=== PATIENT | male | born 1975 | race Caucasian/White ===

== ENCOUNTER 2016-08-29 10:15 | Emergency (ER) | payer OTHER ==
[2016-08-29 10:20] VITALS: BP 129/91; PULSE 99; TEMP 97.8; BMI 27.1
[2016-08-29] MEDS ORDERED: ONDANSETRON *ODT* 4 MG TABLET ONE (10:46)
[2016-08-29] MEDS ORDERED: KETOROLAC TROMETHAMINE 60 MG/2 ML VIAL ONE (11:35)
[2016-08-29] MEDS ORDERED: KETOROLAC TROMETHAMINE 60 MG/2 ML VIAL IM ONE (11:36)
[2016-08-29 13:34] LABS: BASOPHIL 0.4 % (0-2.0); EOSINOPHIL 0.1 % (0-4.5); MCH 30.6 pg (25.7-33.7); MCHC 34.5 g/dl (32.0-35.9); MEAN CELL VOLUME 88.6 fl (80-96); MEAN PLT VOLUME 8.2 fl (7.5-11.1); NEUTROPHILS 88.8 % (42.8-82.8); PLATELET COUNT 268 K/MM3 (134-434); RDW 12.5 % (11.9-15.9); WHITE BLOOD COUNT 11.6 K/mm3 (4.0-10.0)
[2016-08-29 14:05] LABS: BILIRUBIN,DIRECT 0.2 mg/dL (0.0-0.2); BILIRUBIN,TOTAL 0.8 mg/dL (0.2-1.0); CALCIUM 8.7 mg/dL (8.5-10.1); CREATININE 1.1 mg/dL (0.7-1.3)
--- NOTE | 2016-08-29 14:17 | PDOC ---
History of Present Illness - General Chief Complaint: Vomiting/Diarrhea Stated Complaint: ABD PAIN, VOMITING Time Seen by Provider: 08/29/16 10:37 History Source: Patient Exam Limitations: No Limitations - History of Present Illness Initial Comments: 08/29/16 14:12 ccVOMITING AND DIARRHEA X 2 AM; WITH FEVER AND BODY ACHES; CONCERNED BECAUSE HE DRINKS ON WEEKENDS Quality: reports: moderate Abdominal Pain Onset Location: reports: epigastric. denies: RUQ, LUQ, RLQ, LLQ , flank Past History - Past Medical History Allergies/Adverse Reactions: Allergies Allergy/AdvReac Type Severity Reaction Status Date / Time No Known Allergies Allergy Verified 08/29/16 10:17 Home Medications: Ambulatory Orders NK [No Known Home Medication] 08/29/16 GI Disorders: Yes (GASTRITIS) HTN: Yes - Surgical History Cholecystectomy: Yes - Immunization History Immunization Up to Date: Yes (no flu) - Psycho/Social/Smoking Cessation Hx Anxiety: No Suicidal Ideation: No Smoking Status: No Smoking History: Never smoked Number of Cigarettes Smoked Daily: 0 Information on smoking cessation initiated: No Hx Alcohol Use: No Drug/Substance Use Hx: No Substance Use Type: None Review of Systems - Review of Systems Constitutional: Yes: Chills, Fever, Malaise HEENTM: Yes: Nose Congestion. No: Throat Swelling, Difficulty Swallowing Respiratory: Yes: Cough Cardiac (ROS): No: Symptoms Reported ABD/GI: Yes: Diarrhea, Nausea, Vomiting : No: Symptoms Reported, Dysuria Integumentary: No: Symptoms Reported Neurological: No: Symptoms reported *Physical Exam - Vital Signs Last Vital Signs Temp Pulse Resp BP Pulse Ox 97.8 F 99 H 20 129/91 98 08/29/16 10:17 08/29/16 10:17 08/29/16 10:17 08/29/16 10:17 08/29/16 10:17 - Physical Exam General Appearance: Yes: Appropriately Dressed. No: Apparent Distress HEENT: positive: Normal Voice, TMs Normal, Pharynx Normal Neck: positive: Supple. negative: Tender, Rigid, Lymphadenopathy (R), Lymphadenopathy (L) Respiratory/Chest: positive: Lungs Clear. negative: Stridor, Wheezing Cardiovascular: positive: Regular Rhythm, Regular Rate. negative: Murmur Gastrointestinal/Abdominal: positive: Normal Bowel Sounds, Tender (MILD EPIGASTRIC TENDERNESS). negative: Organomegaly, Pulsatile Mass, Rebound, Hernia Neurologic: positive: potline monitor II-XII NML intact, Fully Oriented, Alert, Normal Response ED Treatment Course - LABORATORY CBC & Chemistry Diagram: 08/29/16 13:00 08/29/16 13:00 - ADDITIONAL ORDERS Additional order review: Laboratory Results 08/29/16 13:00 Sodium 138 Potassium 4.4 Chloride 104 Carbon Dioxide 25 Anion Gap 9 BUN 20 H Creatinine 1.1 Random Glucose 95 Calcium 8.7 Total Bilirubin 0.8 Direct Bilirubin 0.2 AST 20 ALT 42 Alkaline Phosphatase 87 Total Protein 7.0 Albumin 4.0 08/29/16 10:40 Influenza Types A,B Antigen (NAVYA) - Final Nasopharyngeal Swab - Final 08/29/16 13:00 RBC 5.24 MCV 88.6 MCHC 34.5 RDW 12.5 MPV 8.2 Neutrophils % 88.8 H Lymphocytes % 6.6 L Monocytes % 4.1 Eosinophils % 0.1 Basophils % 0.4 - Medications Given in the ED: ED Medications Discontinued Medications Generic Name Dose Route Start Last Admin Trade Name Farshadq PRN Reason Stop Dose Admin Ketorolac Tromethamine 60 mg 08/29/16 11:36 08/29/16 11:37 Toradol Injection - IM 08/29/16 11:37 60 mg ONCE ONE Administration Medical Decision Making - Medical Decision Making 08/29/16 14:16 LABS= WNL MILD ELEVATED WBC; FEELING MUCH BETTER POST TORADOL AND ZOFRAN, ABLE TO DRINK NOW; NO TENDERNESS NOW *DC/Admit/Observation/Transfer Diagnosis at time of Disposition: Gastroenteritis - Discharge Dispostion Disposition: HOME Condition at time of disposition: Stable Admit: No - Patient Instructions Additional Instructions: RETURN FOR INCREASED SYMPTOMS; LOTS OF FLUIDS; SEE LOCAL md TOMORROW - Post Discharge Activity Work/School Note: Back to Work
== END 2016-08-29 14:21 | disposition home or self-care (01) ==
LOC: JERFT 10:15
PROC: 3E0233Z Introduction of Anti-inflammatory into Muscle, Percutaneous Approach (ICD-10-PCS; principal; 2016-08-29)
DX: K52.9 Noninfective gastroenteritis and colitis, unspecified (principal); I10 Essential (primary) hypertension
CPT/HCPCS: 36415; 80048; 80076; 85025; 87804; 99281-25

== ENCOUNTER 2016-11-19 11:45 | Emergency (ER) | payer SELFPAY ==
[2016-11-19 11:54] VITALS: BP 148/99; PULSE 85; TEMP 98.7; BMI 25.8
--- NOTE | 2016-11-19 12:30 | PDOC ---
History of Present Illness - General Chief Complaint: Respiratory Stated Complaint: COUGH & COLD SX Time Seen by Provider: 11/19/16 12:29 History Source: Patient, Old Records Exam Limitations: No Limitations - History of Present Illness Initial Comments: 11/19/16 13:02 41-year-old male with no significant past medical history presents to the emergency Department with complaints of cough productive with yellow sputum, body aches and generalized weakness since Friday. The patient reports subjective fevers but did not take his temperature. He denies chest pain, shortness of breath. He has several family members at home with similar symptoms. The patient did not get the flu vaccine this year. Past History - Past Medical History Allergies/Adverse Reactions: Allergies Allergy/AdvReac Type Severity Reaction Status Date / Time No Known Allergies Allergy Verified 11/19/16 11:50 Home Medications: Ambulatory Orders Bp Pill 1 tab PO DAILY 11/19/16 Oseltamivir Phosphate [Tamiflu] 75 mg PO BID #10 capsule 11/19/16 GI Disorders: Yes (GASTRITIS) HTN: Yes - Surgical History Cholecystectomy: Yes - Immunization History Immunization Up to Date: (no flu) - Psycho/Social/Smoking Cessation Hx Anxiety: No Suicidal Ideation: No Smoking Status: No Smoking History: Never smoked Number of Cigarettes Smoked Daily: 0 Information on smoking cessation initiated: No Hx Alcohol Use: No Drug/Substance Use Hx: No Substance Use Type: None Review of Systems - Review of Systems Able to Perform ROS?: Yes Is the patient limited Persian proficient: No Constitutional: Yes: See HPI HEENTM: No: Symptoms Reported Respiratory: Yes: See HPI, Cough Cardiac (ROS): No: Symptoms Reported ABD/GI: No: Symptoms Reported : No: Symptoms Reported Musculoskeletal: No: Symptoms Reported Integumentary: No: Symptoms Reported Neurological: No: Symptoms reported *Physical Exam - Vital Signs Last Vital Signs Temp Pulse Resp BP Pulse Ox 98.7 F 85 18 148/99 96 11/19/16 11:45 11/19/16 11:45 11/19/16 11:45 11/19/16 11:45 11/19/16 11:45 - Physical Exam Comments: 11/19/16 13:03 GENERAL: Well developed, well nourished. Awake and alert. No acute distress. HEENT: Normocephalic, atraumatic. PERRLA, EOMI. No conjunctival pallor. Sclera are non- icteric. Moist mucous membranes. Oropharynx is clear. NECK: Supple. Full ROM. No JVD. No lymphadenopathy. CARDIOVASCULAR: Regular rate and rhythm. No murmurs, rubs, or gallops. Distal pulses are 2+ and symmetric. PULMONARY: No evidence of respiratory distress. Lungs clear to auscultation bilaterally. No wheezing, rales or rhonchi. ABDOMINAL: Soft. Non-tender. Non-distended. No rebound or guarding. No organomegaly. Normoactive bowel sounds. MUSCULOSKELETAL Normal range of motion at all joints. No bony deformities or tenderness. No CVA tenderness. EXTREMITIES: No cyanosis. No clubbing. No edema. No calf tenderness. SKIN: Warm and dry. Normal capillary refill. No rashes. No jaundice. NEUROLOGICAL: Alert, awake, appropriate. Cranial nerves 2-12 intact. Grossly non-focal exam. PSYCHIATRIC: Cooperative. Good eye contact. Appropriate mood and affect. Medical Decision Making - Medical Decision Making 11/19/16 13:03 41-year-old male with history of cough productive with yellow sputum, body aches , chills and subjective fevers. Differential diagnosis includes but is not limited to: Pneumonia, URI, influenza. Plan: 1. Chest x-ray 2. Influenza PCR 3. Observe and reevaluate *DC/Admit/Observation/Transfer Diagnosis at time of Disposition: Upper respiratory tract infection due to influenza Diagnosis at time of Disposition: (Ruled Out): URI, acute - Discharge Dispostion Disposition: HOME Condition at time of disposition: Stable Admit: No - Prescriptions Prescriptions: Oseltamivir Phosphate [Tamiflu] 75 mg PO BID #10 capsule - Patient Instructions Additional Instructions: You have tested positive for Influenza B. You are being prescribed Tamiflu 75mg -take one tablet twice per day for 5 days. Please follow-up with your primary care physician and return to the ED if your symptoms persist, worsen or new symptoms arise.
[2016-11-19] MEDS ORDERED: ACETAMINOPHEN 500 MG TABLET (FP) PO ONE (13:39)
[2016-11-19] MEDS ORDERED: ACETAMINOPHEN 325 MG TABLET (FP) ONE (13:48)
== END 2016-11-19 14:31 | disposition home or self-care (01) ==
LOC: FER 11:45
DX: J11.1 Influenza due to unidentified influenza virus with other respiratory manifestations (principal)
CPT/HCPCS: 71020-TC; 87804; 99283-25